=== PATIENT | female | born 1980 | race African-American/Black ===

== ENCOUNTER 2018-01-20 08:36 | Emergency (ER) | payer MEDICARE, OTHER ==
[2018-01-20] MEDS: SOD CHLORIDE 0.9% 1,000 ML IV (09:29)
[2018-01-20] MEDS: ACETAMINOPHEN 325 MG TAB PO (09:32)
[2018-01-20] MEDS: ONDANSETRON 4 MG INJ IV (09:32)
[2018-01-20 09:41] LABS: ADD MAN DIFF? NO
[2018-01-20 09:43] LABS: BASOPHIL # 0.1 10^3/ul (0.0-0.1); BASOPHILS % 0.6 % (0.0-2.0); EOSINOPHILS # 0.1 10^3/ul (0.0-0.5); EOSINOPHILS % 1.4 % (0.0-7.0); HEMATOCRIT 39.2 % (37.0-47.0); HEMOGLOBIN 12.7 g/dl (12.0-16.0); LYMPHOCYTES # 2.1 10^3/ul (0.8-2.9); LYMPHOCYTES % 26.4 % (15.0-51.0); MEAN CORPUSCULAR HEMOGLOBIN 31.6 pg (29.0-33.0); MEAN CORPUSCULAR HGB CONC 32.4 g/dl (32.0-37.0); MEAN CORPUSCULAR VOLUME 97.5 fl (82.0-101.0); MONOCYTE # 0.5 10^3/ul (0.3-0.9); MONOCYTES % 6.9 % (0.0-11.0); NEUTROPHIL # 5.1 10^3/ul (1.6-7.5); NEUTROPHILS % 64.4 % (39.0-77.0); PLATELET COUNT 288 10^3/UL (140-415); RED BLOOD COUNT 4.02 10^6/ul (4.20-5.40); RED CELL DISTRIBUTION WIDTH 13.5 % (11.5-14.5)
[2018-01-20 09:43] LABS: WHITE BLOOD COUNT 7.9 10^3/ul (4.8-10.8)
[2018-01-20 09:46] LABS: ADD UMIC NO; UR ASCORBIC ACID NEGATIVE (NEGATIVE); UR BILIRUBIN (Dip) NEGATIVE (NEGATIVE); UR BLOOD (Dip) NEGATIVE (NEGATIVE); UR CLARITY CLEAR (CLEAR); UR COLOR YELLOW (YELLOW); UR GLUCOSE (Dip) NEGATIVE (NEGATIVE); UR KETONES (Dip) NEGATIVE (NEGATIVE); UR LEUKOCYTE ESTERASE (Dip) NEGATIVE Leu/ul (NEGATIVE); UR NITRITE (Dip) NEGATIVE (NEGATIVE); UR SPECIFIC GRAVITY (Dip) 1.026 (1.003-1.030); UR TOTAL PROTEIN (Dip) NEGATIVE (NEGATIVE); UR UROBILINOGEN (Dip) 2+ mg/dL (NEGATIVE)
[2018-01-20 10:13] LABS: ALANINE AMINOTRANSFERASE 22 IU/L (13-69); ALBUMIN 4.1 g/dl (3.3-4.9); ALKALINE PHOSPHATASE 78 IU/L (42-121); ANION GAP 13 (8-16); ASPARTATE AMINO TRANSFERASE 18 IU/L (15-46); BILIRUBIN,INDIRECT 0.3 mg/dl (0-1.1); BILIRUBIN,TOTAL 0.3 mg/dl (0.2-1.3); BLOOD UREA NITROGEN 11 mg/dl (7-20); CALCIUM 8.8 mg/dl (8.4-10.2); CARBON DIOXIDE 27 mmol/L (21-31); CHLORIDE 108 mmol/L (97-110); CREATININE 0.72 mg/dl (0.44-1.00); GLUCOSE 87 mg/dl (70-220); LIPASE 62 U/L (23-300); POTASSIUM 3.9 mmol/L (3.5-5.1); SODIUM 144 mmol/L (135-144); TOTAL PROTEIN 7.8 g/dl (6.1-8.1)
[2018-01-20] MEDS: KETOROLAC 30 MG INJ IV (12:01)
[2018-01-20] MEDS: AZITHROMYCIN 250 MG TAB PO (12:02)
[2018-01-20] MEDS: CEFTRIAXONE 500 MG in SOD CHLORIDE 0.9% 50 ML IVPB (12:38)
== END 2018-01-20 13:22 | disposition home or self-care (01) ==
LOC: FTE 08:36
DX: R10.2 Pelvic and perineal pain (principal); R11.2 Nausea with vomiting, unspecified
CPT/HCPCS: 36415; 76830; 76856; 80053; 81003; 81025; 83690; 85025; 87591; 96361; 96365; 96375; 99285-25

== ENCOUNTER 2018-06-01 08:47 | Emergency (ER) | payer MEDICARE, OTHER | END 2018-06-01 09:34 | disposition home or self-care (01) | LOC: FTE 08:47 | DX: H69.93 Unspecified Eustachian tube disorder, bilateral (principal) | CPT/HCPCS: 99282 ==